=== PATIENT | female | born 1985 | race Caucasian/White ===

== ENCOUNTER 2017-04-14 10:52 | Emergency (ER) | payer OTHER ==
[~2017-04-14] VITALS: Ht 154.9 cm; Wt 115.0 kg
[2017-04-14 10:53] VITALS: BP 122/84; PULSE 91; RESP 14; TEMP 98.6; O2SAT 97
[2017-04-14] MEDS ORDERED: ZOFR4TAB3 SL (11:27)
[2017-04-14] MEDS ORDERED: FLUT1SPR5 EACH NARE (11:27)
--- NOTE | 2017-04-14 11:30 | PD ---
HPI . Runny nose and sore throat Chief Complaint: Cold / Flu Symptoms Time Seen by Provider: 11:18 Travel History International Travel<30 days: No Contact w/Intl Traveler<30days: No Traveled to known affect area: No History of Present Illness HPI 31-year-old female presents emergency department for evaluation of runny nose and sore throat 2 days. Patient states she vomited yesterday but has not vomited today and does not feel nauseated at this time. Patient denies any fevers, chills, malaise, shortness of breath, cough, chest pain, diarrhea. Patient's only major medical history is asthma and she uses an inhaler as needed. PFSH Past Medical History Respiratory: Yes (ASTHMA) ?: Not LMP: LAST MONTH Social History Alcohol Use: No Tobacco Use: No Substance Use: No Allergies-Medications (Allergen,Severity, Reaction): Coded Allergies: Iodinated Contrast- Oral and IV Dye (Verified Allergy, Severe, Anaphylaxis , 04/14/17) Penicillins (Verified Allergy, Severe, Anaphylaxis, 04/14/17) Reported Meds & Prescriptions Reported Meds & Active Scripts Active Zofran Odt (Ondansetron Odt) 4 Mg Tab 4 Mg SL Q6HR PRN Flonase Nasal [place] (Fluticasone Nasal [place]) 50 Mcg/Act [place] 50 Mcg EACH NARE BID Review of Systems Except as stated in HPI: all other systems reviewed are Neg Physical Exam Narrative GENERAL: Well-nourished, well-developed 31-year-old female patient in no acute distress. Nontoxic-appearing. SKIN: Focused skin assessment warm/dry. HEAD: Normocephalic. Atraumatic. EYES: No scleral icterus. No injection or drainage. THROAT: No pharyngeal injection, exudates, or tonsillar hypertrophy. Airway is patent. EARS: Bilateral pinnae and external canals appear within normal limits. Bilateral tympanic membranes without erythema, dullness or perforation. NECK: Supple, trachea midline. No JVD or lymphadenopathy. CARDIOVASCULAR: Regular rate and rhythm without murmurs, gallops, or rubs. RESPIRATORY: Breath sounds equal bilaterally. No accessory muscle use. GASTROINTESTINAL: Abdomen soft, non-tender, nondistended. MUSCULOSKELETAL: No cyanosis, or edema. Data Data Last Documented VS Vital Signs Date Time Temp Pulse Resp B/P (MAP) Pulse Ox O2 Delivery O2 Flow Rate FiO2 04/14/17 11:35 04/14/17 10:53 98.6 91 14 97 Orders Orders Ed Discharge Order (04/14/17 11:31) [facility] Medical Decision Making Medical Screen Exam Complete: Yes Emergency Medical Condition: Yes Differential Diagnosis Differential diagnoses include but not limited to URI, pharyngitis, viral syndrome Narrative Course 31-year-old female presents emergency department for evaluation of sore throat and runny nose 2 days. Patient has not had a fever during that time. Patient felt nauseated yesterday and vomited once but has not felt nauseated today or subsequently. Patient fully major medical history is asthma and uses an inhaler when necessary. Patient doesn't have a cough or wheezing at this time. According to [employer] score recommendation the patient will be treated symptomatically for sore throat. Patient will be discharged home with instructions for supportive care, Flonase prescription and Zofran prescription. Patient instructed to return the emergency Department as needed but otherwise follow up with primary care. Patient on board with this plan of care and thankful for care. Diagnosis Primary Impression: Pharyngitis Qualified Codes: J02.9 - Acute pharyngitis, unspecified Referrals: Primary Care Physician Patient Instructions: General Instructions, Pharyngitis (ED) Departure Forms: Tests/Procedures, Work Release Enter return to work date: Apr 18, 2017 Additional Instructions: Please return to emergency department if your symptoms return or worsen. Follow up with your primary care provider. Take medications as prescribed. Supportive care, stay hydrated, get rest, diet as tolerated. May take [id number] ibuprofen as needed for pain or fevers. Med/Other Pt SpecificInfo: Prescription(s) given Scripts Ondansetron Odt (Zofran Odt) 4 Mg Tab 4 MG SL Q6HR Y for Nausea/Vomiting, #10 TAB 0 Refills Prov: Irena Holm 04/14/17 Fluticasone Nasal [place] (Flonase Nasal [place]) 50 Mcg/Act [place] 50 MCG EACH NARE BID for Allergies, #1 BOTTLE 0 Refills Prov: Irena Holm 04/14/17 Disposition: 01 DISCHARGE HOME Condition: Stable Irena Holm Apr 14, 2017 11:30
== END 2017-04-14 11:47 | disposition home or self-care (01) ==
LOC: NEPK 10:52
DX: J02.9 Acute pharyngitis, unspecified (principal)
CPT/HCPCS: 99283